=== PATIENT | female | born 1940 | race Caucasian/White ===

== ENCOUNTER → 2017-07-18 | Outpatient (CLI) | payer MEDICARE, BC ==
[~2017-07-18] MED LIST: ACT PO; ALB18R INH; ALBU8.5H IH; AMLO-96 PO; APIX5TAB PO; ASPI-1471 PO; ATOR-1 PO; ATOR40TA69 PO; AZIT-1 PO; BENZ100C4 PO; BENZ200C15 PO; BUPR-156 PO; CHOL100061 PO; CLIMARA PATCH; CODE118S5 PO; CYAN10006 IM; CYCL7.5T21 PO; DILT180C4 PO; DILT180T PO; DILT240C4 PO; DILT360C PO; DOXY-179 PO; ENOX100D5 SQ; ENOX40DI8 SQ; ENOX80DI8 SQ; ESTR0.5T16 PO; FLU IM; FLU45SYR17 IM; FLUT1DIS28 IH; FURO-45 PO; GABA-549 PO; GUAI120L3 PO; HYZAAR; IPRA3AMP21 IH; IPRA4AER IH; KET10 PO; LEV500 PO; LEVO-85 PO; LOSA-37 PO; LOSA-54 PO; LOSA-57 PO; MELO-205 PO; METF-410 PO; METO-253 PO; METO50TA19 PO; MONT10TA PO; MONT10TA4 PO; ORLI120C21 PO; OXYGENHOME INH; PER PO; PRED20TA6 PO; RANI-318 PO; SPIR25TA78 PO; TRAM-420 PO; VAR05PT PO; WARF10TA34 PO; WARF1TAB15 PO; WARF4TAB54 PO; WARF5TAB23 PO; ZOL5 PO
--- NOTE | 2017-07-18 16:51 | RADIOLOGY IMAGING REPORT ---
FACILITY: [facility] - [place] PATIENT NAME: Kaylie Chan : 1940 MR: [id number] V: [id number] EXAM DATE: ORDERING PHYSICIAN: ANISH HOYOS TECHNOLOGIST: [facility] Patient: Kaylie Chan : 1940 Visit/Account:[id number] Date of Sevice: 07/18/2017 Exam type: CHEST PA AND LAT History: Cough, fever, chills Comparison: 03/31/2016. Findings: There is minimal consolidation at the right lung base and a subtle infiltrate is not excluded. Calcif ied granuloma right midlung is unchanged. No pleural effusion or pneumothorax. Diaphragms are flatten ed. Heart size is enlarged. The osseous structures demonstrate osteopenia. IMPRESSION: 1. Mild consolidation at right lung base could represent a subtle infiltrate. 2. Pulmonary hyperinflation. 3. Stable benign calcified granuloma right midlung. Report Dictated By: Zafar Lugo MD at 07/18/2017 4:46 PM Report E-Signed By: Zafar Lugo MD at 07/18/2017 4:48 PM WSN:[id number]
== END ==
LOC: RAD 16:26
PROVIDERS: ATTEND Emergency Medicine
DX: J84.10 Pulmonary fibrosis, unspecified (principal); R91.8 Other nonspecific abnormal finding of lung field
CPT/HCPCS: 71046

== ENCOUNTER → 2017-07-29 | Outpatient (CLI) | payer MEDICARE, BC ==
[~2017-07-29] MED LIST changes: +METH4TAB66 PO; +POTA-28 PO
[2017-07-29 14:14] LABS: PLATELET COUNT, AUTOMATED 360 K/uL (150-450)
--- NOTE | 2017-07-29 14:33 | RADIOLOGY IMAGING REPORT ---
FAC[place] [facility] [place] PATIENT NAME: Kaylie Chan : 1940 MR: [id number] V: [id number] EXAM DATE: ORDERING PHYSICIAN: ANISH HOYOS TECHNOLOGIST: Location: [facility] - [place] Patient: Kaylie Chan : 1940 Visit/Account:[id number] Date of Sevice: 07/29/2017 2 VIEWS CHEST INDICATION: Pneumonia. COMPARISON: 07/18/2017. FINDINGS: Cardiac silhouette remains mildly enlarged but unchanged. Mediastinal silhouette and pulmonary vessel s within normal limits. There is improved aeration to the right lower lobe however there are still some mild residual infiltr ate or postinflammatory changes present. The remaining lung miller are clear. There is no pneumothorax or pleural effusion. Stable calcified granuloma in the right lung. No new nodules. Upper abdomen is unremarkable. No acute bony abnormality. IMPRESSION: 1. Improved aeration to the right lower lobe with mild residual infiltrate/post inflammatory change r emaining. I called report to ANISH HOYOS at 07/29/2017 2:28 PM. Report Dictated By: Zafar Brown at 07/29/2017 2:25 PM Report E-Signed By: Zafar Brown at 07/29/2017 2:28 PM WSN:[id number]
== END ==
LOC: RAD 13:40
PROVIDERS: ATTEND Emergency Medicine
DX: I51.7 Cardiomegaly (principal); R91.8 Other nonspecific abnormal finding of lung field; I10 Essential (primary) hypertension; R05 Cough; J44.9 Chronic obstructive pulmonary disease, unspecified; R06.00 Dyspnea, unspecified
CPT/HCPCS: 36415; 71046; 82040; 82247; 82310; 82374; 82435; 82565; 82947; 83880; 84075; 84132; 84155; 84295; 84450; 84460; 84520; 85025; 85379; 86140

== ENCOUNTER → 2017-08-12 | Outpatient (CLI) | payer MEDICARE, BC | LOC: LAB 10:33 | PROVIDERS: ATTEND Emergency Medicine | DX: J18.9 Pneumonia, unspecified organism (principal) | CPT/HCPCS: 36415; 82310; 82374; 82435; 82565; 82947; 84132; 84295; 84520; 86140 ==

== ENCOUNTER 2017-10-04 10:30 | Outpatient (RCR) | payer MEDICARE, BC ==
--- NOTE | 2017-09-13 11:49 | PT INITIAL EVALUATION ---
MEDICAL DIAGNOSIS: R) perkins ulcer TREATMENT DIAGNOSIS: R) medial perkins ulcer d/t trauma DATE OF ONSET: 08/27/17 SUBJECTIVE: Pt reports that she cut her R) leg on a stool approx. 2 weeks ago. She has been treating the area with antibiotic cream with daily dressing changes. She reports increased pain and swelling of the area. She was referred for PT wound care by her PCP. REHAB PROBLEM LIST: Open wound, increased swelling of R) LE PREVIOUS MEDICAL HISTORY: Retinal dystrophy, CAD (stent placed in 2008), PVD ( stent in L) iliac 2008), Angioplasty, HLD, COPD, Afib (see EMR for details) OBJECTIVE: Wound Measurement: 6 cm L x 6.4 cm W x0.2 cm D Girth Measurements: R) LE -superior to malleoli: 24 cm -mid-calf: 37.5 cm L) LE -superior to malleoli: 22 cm -mid-calf: 32.5 cm ASSESSMENT: Pt presents with larger ulcer on the R) medial perkins. Adhered slough covers 90% of the wound, with portions of detached epithelium present as well. PT completed conservative, selective debridement of non-viable tissue and slough with tweezers and scissors to the depth of the subcutaneous tissue. Debridement limited by pt's discomfort, therefore adhered slough remained. PT cleansed the wound with sterile saline and gauze and then placed calcium alginate with silver across the wound base, followed by a silicone bordered dressing to assist with autolytic debridement. R) LE demonstrates increased edema and girth measurements as compared to the L) LE, with possible signs of venous insufficiency affecting wound healing. The patient will benefit from skilled PT wound care to include sharps debridement as well as advanced wound care product selection and application to facilitate wound healing. Short Term Goals 1: Pt to maintain clean, dry and intact dressing between wound care visits. 2: Wound to demonstrate 100% granulation tissue with no s/s of infection. 3: Wound to gradually epithelialize from the edges inward and demonstrate full closure. 4: Pt to demonstrate importance of LE elevation to assist with edema management. Patient's Goals Wound Healing PLAN: Patient to be seen for skilled PT wound care to include sharps debridement as well as advanced wound care product selection and application to facilitate wound healing 1-2x/week for up to 90 days. Thank you for this referral. If you have any questions, comments, or concerns about this report or plan, please contact me at . Pauline Patel PT, DPT [facility]
[~2017-10-04 10:30] MED LIST changes: -METF-410 PO; +METF-411 PO; +WARF10TA10 PO; -WARF10TA34 PO; +WARF4TAB15 PO; -WARF4TAB54 PO
--- NOTE | 2017-10-04 10:54 | PT PLAN OF CARE ---
Physician: Dr. Morrison Patient is being seen: Kaylie Chan Therapist: Pauline Patel, PT, DPT Medical Diagnosis: R) perkins ulcer Treatment Diagnosis: R) medial perkins ulcer d/t trauma Date of Onset: 08/27/17 Date of Initial Evaluation: 09/12/17 Date patient was last seen: 10/04/17 Number of treatments: 5 Number of cancellations/No shows: 0 INTERVENTIONS: The patient was seen for skilled PT wound care including conservative sharps debridement as well as advanced wound care product selection and application in order to facilitate wound healing. Short Term Goals *(all met)* 1: Pt to maintain clean, dry and intact dressing between wound care visits. 2: Wound to demonstrate 100% granulation tissue with no s/s of infection. 3: Wound to gradually epithelialize from the edges inward and demonstrate full closure. 4: Pt to demonstrate importance of LE elevation to assist with edema management. PATIENT'S GOAL: Wound healing Status of Patient's Goals: met Patient Compliance: Excellent Prognosis: Good Reasons for continuing therapy: None at this time, wound demonstrates 100% closure with reduction of LE edema. No further need for skilled PT wound care. Thank you for this referral. If you have any questions, comments, or concerns about this report or plan, please contact me at . Pauline Patel, PT, DPT [facility]
== END 2017-10-04 11:28 | disposition home or self-care (01) ==
LOC: PT 10:30
PROVIDERS: ATTEND Emergency Medicine
DX: L97.911 Non-pressure chronic ulcer of unspecified part of right lower leg limited to breakdown of skin (principal); H35.50 Unspecified hereditary retinal dystrophy; I25.10 Atherosclerotic heart disease of native coronary artery without angina pectoris; Z98.61 Coronary angioplasty status; E78.5 Hyperlipidemia, unspecified; J44.9 Chronic obstructive pulmonary disease, unspecified; I48.91 Unspecified atrial fibrillation
CPT/HCPCS: 97161

== ENCOUNTER 2017-10-18 10:58 | Emergency (ER) | payer MEDICARE, BC ==
--- NOTE | 2017-10-18 11:01 | ER Report ---
History and Physical Time Seen By MD: 11:01 HPI/ROS CHIEF COMPLAINT: Back pain HISTORY OF PRESENT ILLNESS: This is a 77-year-old female who presents to the emergency department with her for severe back pain. Patient states that last Tuesday she had a sudden onset of severe back pain mid thoracic region primarily on the left side. Patient then rushed home but is a receded to home it did go away then today the back pain return suddenly around 0930 no injury. The pain does radiate from the mid thoracic region to the left axilla area. Patient does state that she has chills and aches, intermittent diaphoresis that seems to coinside with the pain. Patient was also recently released from the hospital for pneumonia and she states the pain was very similar. Patient denies headaches, rashes, visual changes, dysuria. The pain does cause some intermittent shortness of breath. but no chest pain. REVIEW OF SYSTEMS: Constitutional: As above Eyes: No discharge. ENT: No sore throat. Cardiovascular: No chest pain, no palpitations. Respiratory: As above. Gastrointestinal: No abdominal pain, no vomiting. Genitourinary: No hematuria. Musculoskeletal: As above. Skin: No rashes. Neurological: No headache. Allergies: Coded Allergies: Penicillins (Verified Allergy, Severe, ANAPHYLAXIS, 10/18/17) morphine (Verified Allergy, Intermediate, HIVES, 10/18/17) levofloxacin (Unverified Adverse Reaction, Intermediate, widespread joint pain. 01/27. , 10/18/17) Mtlslby-Dht-Gvv Reductase Inhibitor (Unverified Adverse Reaction, Mild, stomach pain, 10/18/17) Home Meds Active Scripts Metaxalone (SKELAXIN) 800 Mg Tablet, 800 MG PO TID Y for prn, #15 TAB 0 Refills Prov:PRECIOUS LUO PAINTING MANAGER-BC 10/18/17 Apixaban (ELIQUIS) 5 Mg Tablet, 1 TAB PO BID, #180 TAB 3 Refills Prov:ANISH MORRISON MD 08/09/17 Promethazine HCl/Codeine (Promethazine-Codeine Syrup) 6.25 Mg-10 Mg/5 Ml Syrup, 5 ML PO Q4-6H, #200 ML Prov:ANISH MORRISON MD 07/29/17 Potassium Chloride (POTASSIUM CHLORIDE) 10 Meq Tablet.er, 20 MEQ PO QDAY, #14 TAB Prov:ANISH MORRISON MD 07/29/17 Methylprednisolone (METHYLPREDNISOLONE) 4 Mg Tab.ds.pk, 4 MG PO DIRECTED, #1 PACK Prov:ANISH MORRISON MD 07/29/17 Ipratropium/Albuterol Sulfate (IPRAT-ALBUT 0.5-3(2.5) MG/3 ML) 3 Ml Ampul.neb, 3 ML IH Q4-6H Y for WHEEZING, #40 VIAL 0 Refills Prov:SNEHAL YEH DNP, PAINTING MANAGER-BC 07/25/17 Albuterol Sulfate 90 Mcg/Act (PROAIR HFA 90 MCG/ACT) 8.5 Gm Hfa.aer.ad, 2 PUFF IH Q4-6H, #1 INHALER Prov:ANISH MORRISON MD 07/18/17 Tramadol Hcl (TRAMADOL HCL) 50 Mg Tablet, 2 TAB PO TID Y for pain, #180 TAB 5 Refills Prov:ANISH MORRISON MD 06/20/17 Diltiazem Hcl (DILTIAZEM 24HR CD) 240 Mg Cap.er.24h, 240 MG PO DAILY, #90 CAP.SR.24H 3 Refills Prov:ANISH MORRISON MD 01/05/17 Cyanocobalamin (Vitamin B-12) (VITAMIN B-12) 1,000 Mcg/1 Ml Drops, 1 ML IM Q30D , #1 VIAL 11 Refills Prov:ANISH MORRISON MD 12/08/16 Gabapentin (GABAPENTIN) 300 Mg Capsule, 1 CAP PO TID, #270 CAPSULE 3 Refills Prov:ANISH MORRISON MD 10/25/16 Metoprolol Succinate (METOPROLOL SUCCINATE) 50 Mg Tab.er.24h, 1 TAB PO QDAY, # 90 TAB 3 Refills Prov:ANISH MORRISON MD 10/25/16 Fluticasone/Salmeterol (ADVAIR 250-50 DISKUS) 1 Each Disk.w.dev, 1 EACH IH BID, #3 DISK 3 Refills Prov:ANISH MORRISON MD 10/25/16 Montelukast Sodium (MONTELUKAST SODIUM) 10 Mg Tablet, 1 TAB PO QDAY, #90 TAB 3 Refills Prov:ANISH MORRISON MD 10/25/16 Losartan/Hydrochlorothiazide (LOSARTAN-HCTZ 100-25 MG TAB) 1 Each Tablet, 1 EACH PO QDAY, #90 TAB 3 Refills Prov:ANISH MORRISON MD 10/25/16 Reported Medications Oxygen (OXYGEN) Inha, 3 L INH DAILY, L 01/05/17 Atorvastatin Calcium (ATORVASTATIN CALCIUM) 80 Mg Tablet, 1 TAB PO QDAY, TAB 01/05/17 Aspirin (ASPIR 81) 81 Mg Tablet.dr, 81 MG PO QDAY, TAB 03/15/14 Past Medical/Surgical History Patient has a past medical and surgical history of hypertension, ventral hernia with repair, arthritis, left foot fracture, hospitalization for pneumonia, colonoscopy, colon resection multiple abdominal surgeries, hysterectomy, left foot surgery. Reviewed Nurses Notes: Yes Hx Smoking: Yes (STILL SMOKING) Smoking Status: Former Smoker Constitutional Vital Sign - Last 24 Hours 10/18/17 10/18/17 10/18/17 10/18/17 11:01 11:06 11:07 11:28 Temp 97.9 Pulse 117 119 Resp 22 22 B/P (MAP) 147/99 (115) 147/99 (115) Pulse Ox 96 89 10/18/17 10/18/17 10/18/17 10/18/17 11:30 11:58 12:00 12:15 Pulse 97 Resp 14 B/P (MAP) 145/114 (124) 145/94 (111) 132/77 (95) Pulse Ox 91 10/18/17 10/18/17 10/18/17 10/18/17 12:28 12:30 13:15 13:30 Pulse 92 Resp 17 B/P (MAP) 126/91 (103) 141/99 (113) 125/86 (99) 10/18/17 10/18/17 10/18/17 10/18/17 13:35 13:45 14:04 14:05 Pulse 103 99 Resp 84 B/P (MAP) 114/53 (73) 135/95 (108) Pulse Ox 94 83 Physical Exam General Appearance: The patient is alert, has no immediate need for airway protection and no signs of toxicity, tearful. Eyes: Pupils equal and round no pallor or injection. Blind in right eye. ENT, Mouth: Mucous membranes are moist. Respiratory: There are no retractions, lungs are clear to auscultation. Cardiovascular: Regular rate and rhythm, no murmurs, clicks or rubs. Gastrointestinal: Abdomen is soft and non tender, no masses, bowel sounds normal. Neurological: Alert and oriented 4. Moving all extremities. Following all commands. No focal neuro deficits. Skin: Warm and dry, no rashes. Musculoskeletal: Neck is supple non tender. Reproducible left-sided mid thoracic back pain which does seem to radiate to the left mid axilla area, in a very linear fashion. No crepitus, deformities or bruising. Extremities are nontender, nonswollen and have full range of motion. DIFFERENTIAL DIAGNOSIS: After history and physical exam differential diagnosis was considered for back pain including but not limited to muscular pain, herniated disc, spine fracture, intra-abdominal causes and urinary tract infection.chest pain including but not limited to myocardial ischemia, pericarditis pulmonary embolus, chest wall pain, pleural inflammation and pulmonary infectious causes. Medical Decision Making Data Points Result Diagram: 10/18/17 1122 10/18/17 1122 Laboratory Hematology Test 10/18/17 11:22 10/18/17 12:39 Red Blood Count 5.06 M/uL (4.17-5.56) Mean Corpuscular Volume 93.4 fL (80.0-96.0) Mean Corpuscular Hemoglobin 32.5 pg (26.0-33.0) Mean Corpuscular Hemoglobin Concent 34.8 g/dL (32.0-36.0) Red Cell Distribution Width 13.6 % (11.5-14.5) Mean Platelet Volume 7.3 fL (7.2-11.1) Neutrophils (%) (Auto) 74.9 % (39.4-72.5) Lymphocytes (%) (Auto) 17.2 % (17.6-49.6) Monocytes (%) (Auto) 5.7 % (4.1-12.4) Eosinophils (%) (Auto) 1.0 % (0.4-6.7) Basophils (%) (Auto) 1.2 % (0.3-1.4) Nucleated RBC Relative Count (auto) 0.0 /100WBC Neutrophils # (Auto) 5.2 K/uL (2.0-7.4) Lymphocytes # (Auto) 1.2 K/uL (1.3-3.6) Monocytes # (Auto) 0.4 K/uL (0.3-1.0) Eosinophils # (Auto) 0.1 K/uL (0.0-0.5) Basophils # (Auto) 0.1 K/uL (0.0-0.1) Nucleated RBC Absolute Count (auto) 0.00 K/uL Sodium Level 138 mmol/L (137-145) Potassium Level 3.9 mmol/L (3.5-5.0) Chloride Level 101 mmol/L (98-107) Carbon Dioxide Level 25 mmol/L (22-31) Blood Urea Nitrogen 13 mg/dl (7-18) Creatinine 0.70 mg/dl (0.52-1.04) Glomerular Filtration Rate Calc > 60.0 Random Glucose 115 mg/dl (75-110) Calcium Level 9.7 mg/dl (8.4-10.2) Total Bilirubin 1.1 mg/dl (0.2-1.3) Aspartate Amino Transf (AST/SGOT) 32 U/L (0-35) Alanine Aminotransferase (ALT/SGPT) 39 U/L (0-56) Alkaline Phosphatase 103 U/L (0-126) Troponin I < 0.012 ng/ml Total Protein 7.6 gm/dl (6.3-8.2) Albumin 4.3 g/dl (3.5-5.0) Lipase 95 U/L (23-300) Urine Color Yellow Urine Clarity Clear Urine pH 7.0 pH (4.8-9.5) Urine Specific [place] 1.011 Urine Protein Negative mg/dL (NEGATIVE) Urine Glucose (UA) Negative mg/dL (NEGATIVE) Urine Ketones Negative mg/dL (NEGATIVE) Urine Blood Negative (NEGATIVE) Urine Nitrite Negative (NEGATIVE) Urine Bilirubin Negative (NEGATIVE) Urine Urobilinogen Negative mg/dL (0.2-1.9) Urine Leukocyte Esterase Negative (NEGATIVE) Urine RBC 1 /HPF (0-2/HPF) Urine WBC <1 /HPF (0-5/HPF) Urine Squamous Epithelial Cells Many /LPF (</=FEW) Urine Bacteria Few /HPF (NONE-FEW) Urine Mucus Few /HPF (NONE-FEW) Chemistry Test 10/18/17 11:22 10/18/17 12:39 White Blood Count 7.0 k/uL (4.5-11.0) Red Blood Count 5.06 M/uL (4.17-5.56) Hemoglobin 16.5 g/dL (12.0-16.0) Hematocrit 47.2 % (34.0-47.0) Mean Corpuscular Volume 93.4 fL (80.0-96.0) Mean Corpuscular Hemoglobin 32.5 pg (26.0-33.0) Mean Corpuscular Hemoglobin Concent 34.8 g/dL (32.0-36.0) Red Cell Distribution Width 13.6 % (11.5-14.5) Platelet Count 287 K/uL (150-450) Mean Platelet Volume 7.3 fL (7.2-11.1) Neutrophils (%) (Auto) 74.9 % (39.4-72.5) Lymphocytes (%) (Auto) 17.2 % (17.6-49.6) Monocytes (%) (Auto) 5.7 % (4.1-12.4) Eosinophils (%) (Auto) 1.0 % (0.4-6.7) Basophils (%) (Auto) 1.2 % (0.3-1.4) Nucleated RBC Relative Count (auto) 0.0 /100WBC Neutrophils # (Auto) 5.2 K/uL (2.0-7.4) Lymphocytes # (Auto) 1.2 K/uL (1.3-3.6) Monocytes # (Auto) 0.4 K/uL (0.3-1.0) Eosinophils # (Auto) 0.1 K/uL (0.0-0.5) Basophils # (Auto) 0.1 K/uL (0.0-0.1) Nucleated RBC Absolute Count (auto) 0.00 K/uL Glomerular Filtration Rate Calc > 60.0 Calcium Level 9.7 mg/dl (8.4-10.2) Total Bilirubin 1.1 mg/dl (0.2-1.3) Aspartate Amino Transf (AST/SGOT) 32 U/L (0-35) Alanine Aminotransferase (ALT/SGPT) 39 U/L (0-56) Alkaline Phosphatase 103 U/L (0-126) Troponin I < 0.012 ng/ml Total Protein 7.6 gm/dl (6.3-8.2) Albumin 4.3 g/dl (3.5-5.0) Lipase 95 U/L (23-300) Urine Color Yellow Urine Clarity Clear Urine pH 7.0 pH (4.8-9.5) Urine Specific [place] 1.011 Urine Protein Negative mg/dL (NEGATIVE) Urine Glucose (UA) Negative mg/dL (NEGATIVE) Urine Ketones Negative mg/dL (NEGATIVE) Urine Blood Negative (NEGATIVE) Urine Nitrite Negative (NEGATIVE) Urine Bilirubin Negative (NEGATIVE) Urine Urobilinogen Negative mg/dL (0.2-1.9) Urine Leukocyte Esterase Negative (NEGATIVE) Urine RBC 1 /HPF (0-2/HPF) Urine WBC <1 /HPF (0-5/HPF) Urine Squamous Epithelial Cells Many /LPF (</=FEW) Urine Bacteria Few /HPF (NONE-FEW) Urine Mucus Few /HPF (NONE-FEW) Urinalysis Test 10/18/17 12:39 Urine Color Yellow Urine Clarity Clear Urine pH 7.0 pH (4.8-9.5) Urine Specific [place] 1.011 Urine Protein Negative mg/dL (NEGATIVE) Urine Glucose (UA) Negative mg/dL (NEGATIVE) Urine Ketones Negative mg/dL (NEGATIVE) Urine Blood Negative (NEGATIVE) Urine Nitrite Negative (NEGATIVE) Urine Bilirubin Negative (NEGATIVE) Urine Urobilinogen Negative mg/dL (0.2-1.9) Urine Leukocyte Esterase Negative (NEGATIVE) Urine RBC 1 /HPF (0-2/HPF) Urine WBC <1 /HPF (0-5/HPF) Urine Squamous Epithelial Cells Many /LPF (</=FEW) Urine Bacteria Few /HPF (NONE-FEW) Urine Mucus Few /HPF (NONE-FEW) EKG/Imaging EKG Interpretation 12 lead EKG: Time of EKG 1335 Rhythm: Atrial fibrillation, 94 bpm. [place]: normal QRS: normal ST segments: No ST elevation or depression identified. Probable incomplete right bundle branch block. The 02/27/2015 EKG showing sinus bradycardia, today his A. fib patient states she does have a history of atrial fibrillation. Imaging Location: [facility] Patient: Kaylie Chan : 1940 Visit/Account:[id number] Date of Sevice: 10/18/2017 Examination: CHEST PA AND LAT Comparison: 07/29/2017 and earlier. History: severe back pain, s/p pna Findings: Cardiac and hilar contour size is prominent but unchanged. Right lower lobe calcified granuloma is unchanged since at least 2008. No new or enlarging consolidation or nodule. No pneumothorax, edema, or effusion. No acute osseous abnormality. IMPRESSION: Chronic findings with no evidence of acute cardiopulmonary disease. Report Dictated By: Olu Roman MD at 10/18/2017 12:05 PM Report E-Signed By: Olu Roman MD at 10/18/2017 12:09 PM WSN:[id number] Location: [facility] Patient: Kaylie Chan : 1940 Visit/Account:[id number] Date of Sevice: 10/18/2017 THORACIC SPINE 3 VIEWS HISTORY: Severe back pain status post pneumonia. COMPARISON: X-ray examination chest October 18, 2017. The images from the CT examination of the chest from 2016 are not viewable at this time FINDINGS: Mild levoscoliotic curvature thoracic spine, some of which may be positional. Calcified granuloma seen over the right lung and right hilum. Bony alignment is anatomic. No fracture or destructive osseous process involving the thoracic spine. Due to summation of densities of the shoulders, the T1 vertebra is mildly obscured. No fracture. Mild degenerative changes. IMPRESSION: Mild multilevel spondylosis thoracic spine without acute osseous finding. Report Dictated By: Lazaro Gaffney MD at 10/18/2017 11:59 AM Report E-Signed By: Lazaro Gaffney MD at 10/18/2017 12:00 PM WSN:[id number] ED Course/Re-evaluation Clinical Indication for ER IV: Hydration, IV Access ED Course The patient was admitted to a room. A history physical were obtained. Differential diagnoses were considered. An IV was started. A CBC, CMP were obtained. A troponin and UA were obtained. EKG showing atrial fibrillation, patient does have a history of A. fib. CBC unremarkable, chemistry unremarkable negative troponin negative urine. Negative chest x-ray. I did review these results with the patient and her as noted below did tell him I don't phonation as to why she is having this pain therefore we decided to proceed with a CT of the chest which was negative for pulmonary embolus or dissection. Patient was given a 500 mL normal saline bolus, 50 g IV fentanyl 2, 4 mg IV Zofran. Patient had significant improvement in pain and was able to ambulate without discomfort. I did tell patient that I feel this is more muscular and did send her home with prescription for Skelaxin as well as as a physical therapy referral. Patient was instructed to follow-up with her primary care provider in the next 2-7 days for reevaluation. The patient had no other questions or concerns at this time and was discharged home. Patient was relieved with the negative workup. 10/18/2017 12:34:41 pm lab studies and chest x-ray unremarkable. I did review these results with the patient and her . I did tell him I don't have a definitive answer as to why she is having the left-sided back pain therefore elect to proceed with a CT of the chest. The patient and are in agreement with this. Decision to Disposition Date: Oct 18, 2017 Decision to Disposition Time: 14:22 Depart Departure Latest Vital Signs Vital Signs Date Time Temp Pulse Resp B/P (MAP) Pulse Ox O2 Delivery O2 Flow Rate FiO2 10/18/17 14:05 99 83 10/18/17 14:04 135/95 (108) 10/18/17 13:35 84 10/18/17 11:01 97.9 Impression: Primary Impression: Acute left-sided thoracic back pain Condition: Improved Disposition: HOME OR SELF-CARE Referrals: ANISH MORRISON MD (PCP) New Scripts Metaxalone (SKELAXIN) 800 Mg Tablet 800 MG PO TID Y for prn, #15 TAB 0 Refills Prov: PRECIOUS LUO 10/18/17 Patient Instructions: Acute Low Back Pain (ED) Additional Instructions: Continue to drink plenty of fluids. Get plenty of rest. Continue taking your regular medications as prescribed. Take the Skelaxin for additional pain relief. Consider physical therapy. Follow up with Dr. Morrison in 2-7 days for reevaluation. There is no sign of pneumonia, pulmonary emboli or thoracic dissection. Return to the ED for any other concerns or worsening symptoms. PRECIOUS LUO Oct 18, 2017 11:01
[2017-10-18] MEDS ORDERED: ONDANSETRON 4 MG/2 ML VIAL IVP ONE (11:05)
[2017-10-18] MEDS ORDERED: fentaNYL CITR 100 MCG/2 ML AMP IVP ONE ×2 (11:05→11:55)
[2017-10-18 11:38] LABS: PLATELET COUNT, AUTOMATED 287 K/uL (150-450)
--- NOTE | 2017-10-18 12:03 | RADIOLOGY IMAGING REPORT ---
FACILITY: [facility] - [place], [place] PATIENT NAME: Kaylie Chan : 1940 MR: [id number] V: [id number] EXAM DATE: ORDERING PHYSICIAN: PRECIOUS LUO TECHNOLOGIST: Location: [facility] [place] Patient: Kaylie Chan : 1940 Visit/Account:[id number] Date of Sevice: 10/18/2017 THORACIC SPINE 3 VIEWS HISTORY: Severe back pain status post pneumonia. COMPARISON: X-ray examination chest October 18, 2017. The images from the CT examination of the chest f rom 2015 are not viewable at this time FINDINGS: Mild levoscoliotic curvature thoracic spine, some of which may be positional. Calcified granuloma se en over the right lung and right hilum. Bony alignment is anatomic. No fracture or destructive osseous process involving the thoracic spine. Due to summation of densities of the shoulders, the T1 vertebra is mildly obscured. No fracture. Mild degenerative changes. IMPRESSION: Mild multilevel spondylosis thoracic spine without acute osseous finding. Report Dictated By: Lazaro Gaffney MD at 10/18/2017 11:59 AM Report E-Signed By: Lazaro Gaffney MD at 10/18/2017 12:00 PM WSN:[email or web address]
--- NOTE | 2017-10-18 12:13 | RADIOLOGY IMAGING REPORT ---
FACILITY: [facility] [place] PATIENT NAME: Kaylie Chan : 1940 MR: [id number] V: [id number] EXAM DATE: ORDERING PHYSICIAN: PRECIOUS LUO TECHNOLOGIST: Location: [facility] [place] Patient: Kaylie Chan : 1940 Visit/Account:[id number] Date of Sevice: 10/18/2017 Examination: CHEST PA AND LAT Comparison: 07/29/2017 and earlier. History: severe back pain, s/p pna Findings: Cardiac and hilar contour size is prominent but unchanged. Right lower lobe calcified granu torsten is unchanged since at least 2008. No new or enlarging consolidation or nodule. No pneumothorax, edema, or effusion. No acute osseous abnormality. IMPRESSION: Chronic findings with no evidence of acute cardiopulmonary disease. Report Dictated By: Olu Roman MD at 10/18/2017 12:05 PM Report E-Signed By: Olu Roman MD at 10/18/2017 12:09 PM WSN:[id number]
[2017-10-18] MEDS ORDERED: NS(*) 0.9% 500 ML BAG 500 ML IV ONE (12:35)
[2017-10-18] MEDS ORDERED: IOPAMIDOL 76% 75 ML INFUS BTL 0 ML ONE (12:53)
[2017-10-18] MEDS ORDERED: NS 0.9% 25 ML BAG 50 ML ONE (12:55)
[2017-10-18] MEDS ORDERED: IOPAMIDOL 76% 75 ML INFUS BTL 75 ML ONE (13:03)
--- NOTE | 2017-10-18 13:42 | EKG ---
FACILITY: [facility] - [place] PATIENT NAME: RUPERTO NORMAN : [id number] MR: [id number] V: [id number] EXAM DATE: ORDERING PHYSICIAN: PRECIOUS LUO TECHNOLOGIST: YOSELYN Test Reason : PAIN Blood Pressure : / mmHG Vent. Rate : 094 BPM Atrial Rate : 300 BPM P-R Int : 000 ms QRS Dur : 092 ms QT Int : 374 ms P-R-T Axes : 000 008 004 degrees QTc Int : 467 ms Atrial fibrillation Nonspecific ST abnormality , probably digitalis effect Abnormal ECG When compared with ECG of 27-FEB-2015 10:55, Atrial fibrillation has replaced Sinus rhythm Vent. rate has increased BY 38 BPM Nonspecific T wave abnormality now evident in Inferior leads T wave amplitude has decreased in Anterolateral leads Confirmed by DAMION RAJPUT ([id number]) on 10/19/2017 6:29:37 AM Referred By: NELSON Confirmed By:DAMION RAJPUT
--- NOTE | 2017-10-18 13:53 | RADIOLOGY IMAGING REPORT ---
FACILITY: [facility] - [place] PATIENT NAME: Kaylie Chan : 1940 MR: [id number] V: [id number] EXAM DATE: ORDERING PHYSICIAN: PRECIOUS LUO TECHNOLOGIST: Location: [facility] [place] Patient: Kaylie Chan : 1940 Visit/Account:[id number] Date of Sevice: 10/18/2017 CTA CHEST WW/O CNTR (PULM ANG) HISTORY: sudden onset of left sided back pain, sob, eval PE? ADDITIONAL HISTORY: None. TECHNIQUE: CTA chest with intravenous contrast. Axial imaging acquired following administration of IV contrast timed for maximum opacification of the pulmonary arterial vasculature. Slab 3-D MIP antonietta nstructed images were also created for further evaluation and interpretation. Reconstruction of the [facility] data set includes multiplanar 2-D in the sagittal and coronal planes and 3-D reconstructed sandy nal slab MIP series. 3-D images were created by the technologist. Dose Lowering Technique One of the following dose optimization techniques was utilized in the performance of this exam: Autom ated exposure control; adjustment of the mA and/or kV according to the patient's size; or use of an i terative reconstruction technique. Specific details can be referenced in the facility's radiology C T exam operational policy. CONTRAST: 75 mL Isovue-370 COMPARISON: December 11, 2015 FINDINGS: Lungs/pleura: There are mild dependent changes seen in the lower lung miller. 1 cm calcified nodule in the posterolateral right lower lobe has remained stable.. Previously noted small spiculations in the right middle lobe and right lower lobe are no longer seen. There is no evidence of pleural effu sions. Heart/vessels: The heart is mildly enlarged. There is no evidence of pulmonary emboli demonstrated. Mediastinum/lymph nodes: There are multiple mildly prominent mediastinal lymph nodes many of which a re calcified that appears similar to the prior study Visualized upper abdomen: Calcified granulomas noted in the spleen. Bilateral adrenal nodules appea r similar to the prior study, right side more affected than the left Bones/soft tissues: Incompletely imaged is the right-sided thyroid nodule. This has apparently been previously biopsied although the biopsy results are not currently available to us time Additional findings: None IMPRESSION: No evidence of pulmonary emboli Evidence of a prior granulomatous process There are mild dependent changes in the lower lung miller. Mild cardiomegaly Adrenal nodules appear similar to the prior study Right-sided thyroid nodule is also incompletely seen although has apparently been previously biopsied Report Dictated By: Maria Teresa Valdez MD at 10/18/2017 1:35 PM Report E-Signed By: Maria Teresa Valdez MD at 10/18/2017 1:50 PM WSN:[email or web address]
[2017-10-18 14:04] VITALS: BP 135/95
[2017-10-18] MEDS ORDERED: META800T18 PO (14:13)
== END 2017-10-18 14:44 | disposition home or self-care (01) ==
LOC: ER 11:08
DX: M54.6 Pain in thoracic spine (principal); I48.91 Unspecified atrial fibrillation; R94.31 Abnormal electrocardiogram [ECG] [EKG]
CPT/HCPCS: 71046; 71275; 72072; 81001; 83690; 84484; 85025; 93005; 96361; 96374; 96375; 96376; 99284; J2405; J3010; J7040; Q9967; 82040; 82247; 82310; 82374; 82435; 82565; 82947; 84075; 84132; 84155; 84295; 84450; 84460; 84520

== ENCOUNTER → 2018-03-15 | Outpatient (CLI) | payer MEDICARE, BC ==
[~2018-03-15] MED LIST changes: +AMLO-111 PO; -AMLO-96 PO; +CYA1000 PO; +IPRA3AMP10 IH; -IPRA3AMP21 IH; +META800T18 PO; -METF-411 PO; +METF-450 PO; -SPIR25TA78 PO; +SPIR25TA80 PO; +SULF-198 PO
== END ==
LOC: LAB 11:39
PROVIDERS: ATTEND Emergency Medicine
DX: N39.0 Urinary tract infection, site not specified (principal); R32 Unspecified urinary incontinence; B96.1 Klebsiella pneumoniae [K. pneumoniae] as the cause of diseases classified elsewhere
CPT/HCPCS: 81001; 87077; 87088; 87186

== ENCOUNTER → 2018-03-29 | Outpatient (CLI) | payer MEDICARE, BC ==
--- NOTE | 2018-03-29 16:02 | RADIOLOGY IMAGING REPORT ---
FACILITY: [facility] [place] PATIENT NAME: Kaylie Chan : 1940 MR: [id number] V: [id number] EXAM DATE: ORDERING PHYSICIAN: ANISH HOYOS TECHNOLOGIST: Location: [facility] [place] Patient: Kaylie Chan : 1940 Visit/Account:[id number] Date of Sevice: 03/29/2018 2 VIEWS CHEST INDICATION: Cough, 5-6 days COMPARISON: X-ray examination chest October 18, 2017, CT examination chest same date FINDINGS: Cardiac silhouette is mildly enlarged, stable. Stable sequela of previous granulomatous disease. No evidence of new infiltrate, consolidation, effusion or pneumothorax. No acute bony finding. Overal l, unchanged exam. IMPRESSION: 1. No acute cardiopulmonary process. Report Dictated By: Lazaro Gaffney MD at 03/29/2018 3:55 PM Report E-Signed By: Lazaro Gaffney MD at 03/29/2018 3:57 PM WSN:[email or web address]
== END ==
LOC: RAD 15:22
PROVIDERS: ATTEND Emergency Medicine
DX: R05 Cough (principal)
CPT/HCPCS: 71046

== ENCOUNTER → 2018-04-12 | Outpatient (CLI) | payer MEDICARE, BC ==
[~2018-04-12] MED LIST changes: +CIPR-214 PO; +MIRA50TA PO
== END ==
LOC: LAB 11:20
PROVIDERS: ATTEND Urology
DX: Z12.6 Encounter for screening for malignant neoplasm of bladder (principal); Z87.891 Personal history of nicotine dependence
CPT/HCPCS: 88108

== ENCOUNTER → 2018-07-06 | Outpatient (CLI) | payer MEDICARE, BC ==
[~2018-07-06] MED LIST changes: -AMLO-111 PO; +AMLO-125 PO; +SOLI10TA8 PO
[2018-07-06 16:13] LABS: PLATELET COUNT, AUTOMATED 270 K/uL (150-450)
== END ==
LOC: LAB 15:45
PROVIDERS: ATTEND Urology
DX: Z01.818 Encounter for other preprocedural examination (principal)
CPT/HCPCS: 36415; 82040; 82247; 82310; 82374; 82435; 82565; 82947; 84075; 84132; 84155; 84295; 84450; 84460; 84520; 85025; 85730

== ENCOUNTER 2018-07-24 02:10 | Day surgery (SDC) | payer MEDICARE, BC ==
[~2018-07-24] VITALS: Ht 167.6 cm; Wt 83.9 kg
[2018-07-24] VITALS (8 sets, daily range): BP systolic 100–148; BP diastolic 54–98
[~2018-07-24 02:10] MED LIST changes: +NORMOSOL R SOLN(*) 1000 ML BAG 1,000 ML IV PRN
[2018-07-24] MEDS ORDERED: NORMOSOL R SOLN(*) 1000 ML BAG 1,000 ML IV PRN (06:30)
[2018-07-24] MEDS ORDERED: FAMOTIDINE 20 MG TAB PO ONE (06:30)
[2018-07-24] MEDS ORDERED: MIDAZOLAM 2 MG/2 ML VIAL IVP PRN (06:30)
[2018-07-24] MEDS ORDERED: LIDOCAINE/SOD BICARB 8.4% SYR ID ONE (06:30)
[2018-07-24] MEDS ORDERED: NS 0.9% IVPB ONE (06:30)
[2018-07-24] MEDS ORDERED: GENTAMICIN IVPB ONE (06:30)
[2018-07-24] MEDS ORDERED: ONDANSETRON 4 MG/2 ML VIAL ONE (06:35)
[2018-07-24] MEDS ORDERED: DEXAMETHASONE SOD 4 MG/ML VIAL ONE (06:35)
[2018-07-24] MEDS ORDERED: PROPOFOL EMUL(*) 10MG/ML 20 ML 20 ML ONE (06:35)
[2018-07-24] MEDS ORDERED: LIDOCAINE MPF 1% 5 ML VIAL ONE (06:35)
[2018-07-24] MEDS ORDERED: fentaNYL CITR 100 MCG/2 ML AMP ONE (07:34)
--- NOTE | 2018-07-24 08:41 | Urology Discharge Summary ---
Discharge Summary Reason for Hosp/Final Diag: (1) Stress bladder incontinence, female Status: Resolved Departure Weight (Pounds): 185 Condition: Improved Discharge Instructions Home Meds Active Scripts Cyanocobalamin (Vitamin B-12) (VITAMIN B-12) 1,000 Mcg Tablet, 1000 MCG PO DAILY, #90 TAB 3 Refills Prov:ANISH HOYOS MD 06/30/18 Montelukast Sodium (MONTELUKAST SODIUM) 10 Mg Tablet, 1 TAB PO QDAY, #90 TAB 3 Refills Prov:ANISH HOYOS MD 01/06/18 Tramadol Hcl (TRAMADOL HCL) 50 Mg Tablet, 2 TAB PO TID PRN for pain, #180 TAB 5 Refills Prov:ANISH HOYOS MD 01/04/18 Diltiazem Hcl (DILTIAZEM 24HR CD) 240 Mg Cap.er.24h, 240 MG PO DAILY, #90 CAP.SR.24H 3 Refills Prov:ANISH HOYOS MD 01/03/18 Atorvastatin Calcium (ATORVASTATIN CALCIUM) 40 Mg Tablet, 1 TAB PO QDAY, #90 TAB 3 Refills Prov:ANISH HOYOS MD 12/20/17 Metoprolol Succinate (METOPROLOL SUCCINATE) 50 Mg Tab.er.24h, 1 TAB PO QDAY, #90 TAB 3 Refills Prov:ANISH HOYOS MD 11/07/17 Losartan/Hydrochlorothiazide (LOSARTAN-HCTZ 100-25 MG TAB) 1 Each Tablet, 1 EACH PO QDAY, #90 TAB 3 Refills Prov:ANISH HOYOS MD 10/27/17 Metaxalone (SKELAXIN) 800 Mg Tablet, 800 MG PO TID PRN for prn, #15 TAB 0 Refills Prov:PRECIOUS LUO GAS REGULATOR REPAIRER HELPER-BC 10/18/17 Apixaban (ELIQUIS) 5 Mg Tablet, 1 TAB PO BID, #180 TAB 3 Refills Prov:ANISH HOYOS MD 08/09/17 Ipratropium/Albuterol Sulfate (IPRAT-ALBUT 0.5-3(2.5) MG/3 ML) 3 Ml Ampul.neb, 3 ML IH Q4-6H PRN for WHEEZING, #40 VIAL 0 Refills Prov:SNEHAL YEH DNP, GAS REGULATOR REPAIRER HELPER-BC 07/25/17 Albuterol Sulfate 90 Mcg/Act (PROAIR HFA 90 MCG/ACT) 8.5 Gm Hfa.aer.ad, 2 PUFF IH Q4-6H, #1 INHALER Prov:ANISH HOYOS MD 07/18/17 Gabapentin (GABAPENTIN) 300 Mg Capsule, 1 CAP PO TID, #270 CAPSULE 3 Refills Prov:ANISH HOYOS MD 10/25/16 Fluticasone/Salmeterol (ADVAIR 250-50 DISKUS) 1 Each Disk.w.dev, 1 EACH IH BID, #3 DISK 3 Refills Prov:ANISH HOYOS MD 10/25/16 Reported Medications Aspirin (ASPIR 81) 81 Mg Tablet.dr, 81 MG PO QDAY, TAB 03/15/14 Discontinued Scripts Solifenacin Succinate (VESICARE) 10 Mg Tablet, 10 MG PO DAILY for 30 Days, #30 CAP Prov:SHEMAR MIX MD 05/18/18 Venous Thromboembolism Antithrombotics Is Pt On Any Antithrombotics?: Yes SHEMAR MIX MD Jul 24, 2018 08:41
[2018-07-24] MEDS ORDERED: ALBUTEROL/IPRATROPIUM 3 ML NEB NEB ONE (11:20)
--- NOTE | 2018-07-24 11:22 | NUR ---
0915- PT BROUGHT TO CA PHASE 2 BAY 6, PT A/O X 3, DENIES PAIN OF DISCOMFORT, PT IS POLITE AND COOPERATIVE WITH CARES AND STAFF, VSS, PT ON 3LPM VIA NC, 20G IV IN LEFT HAND, NO S/S OF INFILTRATION, SBAR REPORT FROM MOON RN 0920- NAZARIO AT BEDSIDE 0935- PT TOLERATING COFFEE 0945- CONSULT WITH DR. MARTINEZ ABOUT O2, HE STATES SHE CAME IN LOW AND IF SHE CAN MAINTAIN SATS ABOVE 85% ON RA TO SEND HOME AND HAVE HER USE HER HOME O2 FOR 24HOURS 0950- PT USED PERSONAL INHALERS 0958- PT DENIES PAIN 1007- DECREASED TO 2LPM VIA NC 1015- REVIEWED D/C INSTRUCTIONS WITH PT AND 1017- DECREASED TO 1LPM VIA NC 1025- PER Irish JACKSON RN, SATS DROPPED TO 77% ON 1LPM, PLACED PT ON 2LPM VIA NC 1030- ORTHOSTATIC BP'S DONE VSS 1035- PT AMBULATORY TO RESTROOM WITH PORTABLE O2 AT 2LPM 1045- BACK FROM RESTROOM, DECREASED TO 1LPM VIA, STARTED PT ON IS, CONSULT DR. MARTINEZ ADVISED TO GET PT UP WALKING AND USING IS 1100- PT UP WALKING WITH O2 AT 2LPM, 2 LAPS DONE AROUND PREOP BAYS, PT DENIES SOB, REPORTS SHE "FEELS GREAT" 1107- BACK TO ROOM PLACED ON 1LPM VIA NC, SATS WERE AT 84% ON 1LPM VIA NC 1108- SATS BRAYAN TO 92% ON 1LPM VIA NC 1110- SPOKE WITH DR. MARTINEZ, [place] TX ORDERED 1122- RESPIRATORY AT BEDSIDE 1128- [place] COMPLETED
--- NOTE | 2018-07-24 11:29 | NUR ---
1129-PT PLACED ON RA AFTER DUONEB TX
--- NOTE | 2018-07-24 11:33 | NUR ---
1133- PT GETTING DRESSED
--- NOTE | 2018-07-24 11:38 | NUR ---
1138- PT MAINTAINING SATS ON RA, CONTACT DR. MICHELLE BLISS TO D/C, ADVISED PT TO USE HOME O2 FOR THE FIRST 24HOURS, PT VERBALIZED UNDERSTANDING. 1139- D/C IV WITH CATH INTACT, PRESSURE DRESSING APPLIED WITH GAUZE AND COBAND 1145- PT WHEELCHAIRED OUT TO VEHICLE, ACCOMPANIED BY HIPOLITO CUMMINGS AND NAZARIO
--- NOTE | 2018-07-24 13:13 | OPERATIVE REPORT 1 ---
EVENT DATE: July 24, 2018 SURGEON: Brett Hamilton MD ANESTHESIOLOGIST: Chuck Godoy MD ANESTHESIA: General. IMAGE ASSEMBLER: None. PREOPERATIVE DIAGNOSIS Stress urinary incontinence. POSTOPERATIVE DIAGNOSIS Stress urinary incontinence. PROCEDURE PERFORMED Cystoscopy with bladder neck injection. DESCRIPTION OF PROCEDURE The patient was brought to the operating room and after the adequate induction of general anesthesia, she was placed in the relaxed dorsal lithotomy position. The genitalia were scrubbed, prepped and draped in the sterile fashion and the bladder examined cystoscopically. No mucosal abnormalities were noted within the bladder. The bladder was emptied and I used the injection bridge to advance the Macroplastique needle first to the 2 o'clock position, where half a syringe was injected and then to the 10 o'clock position where half a syringe was injected submucosally. The syringe was then refilled and an entire syringe injected submucosally at the 6 o'clock position. The urethral mucosa appeared to coapt nicely. Her bladder was emptied with an 8-Luxembourgish red rubber catheter. She was aroused from anesthesia and then transferred to the PACU in stable condition. KRISSY
== END 2018-07-24 09:15 | disposition home or self-care (01) ==
LOC: OR 02:10
PROVIDERS: ATTEND Urology
DX: N39.3 Stress incontinence (female) (male) (principal); I10 Essential (primary) hypertension; F17.200 Nicotine dependence, unspecified, uncomplicated
CPT/HCPCS: 51715; 94640; A9270; J1100; J1580; J2001; J2250; J2405; J2704; J3010; J7050; J7620

== ENCOUNTER → 2018-11-07 | Outpatient (CLI) | payer MEDICARE, BC ==
[~2018-11-07] MED LIST changes: -NORMOSOL R SOLN(*) 1000 ML BAG 1,000 ML IV PRN; +OXYB10TA16 PO; +OXYB15TA14 PO; +TROS60CA PO
--- NOTE | 2018-11-07 15:20 | RADIOLOGY IMAGING REPORT ---
FACILITY: [facility] - [place] PATIENT NAME: Kaylie Chan : 1940 MR: [id number] V: [id number] EXAM DATE: ORDERING PHYSICIAN: DAMION DODGE TECHNOLOGIST: Location: [facility] Patient: Kaylie Chan : 1940 Visit/Account:[id number] Date of Sevice: 11/07/2018 CT ABDOMEN PELVIS W/O CON HISTORY: Incisional hernia of anterior abdominal wall TECHNIQUE: Axial images acquired through the abdomen/pelvis. Coronal and sagittal reformatting also performed. No IV contrast administered.Dose Lowering Technique One of the following dose optimization techniques was utilized in the performance of this exam: Autom ated exposure control; adjustment of the mA and/or kV according to the patient's size; or use of an i terative reconstruction technique. Specific details can be referenced in the facility's radiology C T exam operational policy. COMPARISON: CTA chest October 18, 2017 FINDINGS: Visualized lung bases: Negative. Hepatobiliary: Negative. Spleen: Calcified granulomas Adrenals: Hypoattenuating right adrenal masses appear relatively unchanged. Most inferior right adr enal mass in the inferior left renal mass were not included on the prior CT the chest. The low CT Ho unsfield units suggest these are adenomas Pancreas: Negative. Kidneys ureters and bladder: Negative. Genitalia: There postsurgical changes from hysterectomy. There are at least three hyperattenuating masses within the vagina largest measuring approximately 1.7 cm GI: There is a surgical anastomosis in the sigmoid colon. There are scattered diverticula throughou t the colon although no CT evidence of acute diverticulitis. There is a left lateral ventral hernia containing nonobstructed small bowel. There is severe atrophy of the abdominis rectus muscles. There are postsurgical changes along the anterior abdominal wall Vessels/spaces/nodes: There are moderate atherosclerotic calcifications throughout the abdomen and p saleem. There is a left common iliac artery stent. Bones/soft tissues: There are degenerative facet joint changes lumbar spine Additional findings: None pertinent. IMPRESSION: There is a left lateral ventral hernia containing nonobstructed small bowel Severe atrophy of the abdominal rectus muscles Postsurgical changes along the intra-abdominal wall Surgical anastomosis in the sigmoid colon. Scattered diverticula throughout the colon although no CT evidence of acute diverticulitis Hypoattenuating adrenal masses likely represent adenomas Report Dictated By: Maria Teresa Valdez MD at 11/07/2018 2:59 PM Report E-Signed By: Maria Teresa Valdez MD at 11/07/2018 3:14 PM SHEELAN:LENARD
== END ==
LOC: CT 11-02 00:43
PROVIDERS: ATTEND Surgery
DX: K43.2 Incisional hernia without obstruction or gangrene (principal)
CPT/HCPCS: 74176

== ENCOUNTER → 2018-12-08 | Outpatient (CLI) | payer MEDICARE, BC ==
[2018-12-08 14:27] LABS: PLATELET COUNT, AUTOMATED 255 K/uL (150-450)
--- NOTE | 2018-12-08 15:46 | RADIOLOGY IMAGING REPORT ---
FACILITY: [facility] PATIENT NAME: Kaylie Chan : 1940 MR: [id number] V: [id number] EXAM DATE: ORDERING PHYSICIAN: DAMION DODGE TECHNOLOGIST: Location: [facility] - [place] Patient: Kaylie Chan : 1940 Visit/Account:[id number] Date of Sevice: 12/08/2018 Chest 2 views: HISTORY: COPD, history of smoking. Atrial fibrillation. Preoperative clearance. COMPARISON: 03/29/2018 FINDINGS: Frontal and lateral chest: Heart is mildly enlarged. Mediastinal contours are normal. The re is no infiltrate or pleural effusion. No pneumothorax. Pulmonary vasculature is normal. Sequelae of granulomatous disease again noted calcified right hilar nodes and right lung granuloma. Minimal degenerative changes present in the thoracic spine. IMPRESSION: Stable, mild cardiomegaly. There is no evidence of acute cardiopulmonary abnormality. Report Dictated By: Tisha Villagomez MD at 12/08/2018 3:37 PM Report E-Signed By: Tisha Villagomez MD at 12/08/2018 3:38 PM WSN:[id number]
== END ==
LOC: LAB 13:51
PROVIDERS: ATTEND Surgery
DX: I51.7 Cardiomegaly (principal)
CPT/HCPCS: 36415; 71046; 85025

== ENCOUNTER 2018-12-13 00:53 | Day surgery (SDC) | payer MEDICARE, BC ==
[2018-12-13] VITALS (8 sets, daily range): BP systolic 126–178; BP diastolic 78–128
[~2018-12-13] VITALS: Ht 170.2 cm; Wt 81.2 kg
[2018-12-13] MEDS ORDERED: PROPOFOL EMUL(*) 10MG/ML 20 ML 20 ML ONE ×2 (07:11→11:11)
[2018-12-13] MEDS ORDERED: LIDOCAINE/SOD BICARB 8.4% SYR ID ONE (09:25)
[2018-12-13] MEDS ORDERED: NORMOSOL R SOLN(*) 1000 ML BAG 1,000 ML IV PRN (09:25)
[2018-12-13] MEDS ORDERED: LABETALOL HCL 100 MG/20ML VIAL IVP PRN (09:55)
[2018-12-13] MEDS ORDERED: LIDOCAINE/SOD BICARB 8.4% SYR ONE (10:07)
--- NOTE | 2018-12-13 11:25 | Short(Outpt) Discharge Summary ---
Discharge Summary Reason for Hosp/Final Diag: (1) History of colon polyps Status: Chronic Hospital Course & Plan: Colonoscopy with polypectomy x4 completed without problems. 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: Chronic Departure Discharge to: Home, Self Care Discharge Instructions Home Meds Active Scripts Metoprolol Succinate (METOPROLOL SUCCINATE) 50 Mg Tab.er.24h, 1 TAB PO QDAY, #90 TAB 3 Refills Prov:ANISH HOYOS MD 12/08/18 Gabapentin (GABAPENTIN) 300 Mg Capsule, 1 CAP PO TID, #270 CAPSULE 3 Refills Prov:ANISH HOYOS MD 11/10/18 Apixaban (ELIQUIS) 5 Mg Tablet, 1 TAB PO BID, #180 TAB 3 Refills Prov:ANISH HOYOS MD 08/31/18 Tramadol Hcl (TRAMADOL HCL) 50 Mg Tablet, 2 TAB PO TID PRN for pain, #180 TAB 5 Refills Prov:ANISH HOYOS MD 08/24/18 Fluticasone/Salmeterol (ADVAIR 250-50 DISKUS) 1 Each Disk.w.dev, 1 EACH IH BID, #3 DISK 3 Refills Prov:ANISH HOYOS MD 07/31/18 Cyanocobalamin (Vitamin B-12) (VITAMIN B-12) 1,000 Mcg Tablet, 1000 MCG PO DAILY, #90 TAB 3 Refills Prov:ANISH HOYOS MD 06/30/18 Montelukast Sodium (MONTELUKAST SODIUM) 10 Mg Tablet, 1 TAB PO QDAY, #90 TAB 3 Refills Prov:ANISH HOYOS MD 01/06/18 Diltiazem Hcl (DILTIAZEM 24HR CD) 240 Mg Cap.er.24h, 240 MG PO DAILY, #90 CAP.SR.24H 3 Refills Prov:ANISH HOYOS MD 01/03/18 Atorvastatin Calcium (ATORVASTATIN CALCIUM) 40 Mg Tablet, 1 TAB PO QDAY, #90 TAB 3 Refills Prov:ANISH HOYOS MD 12/20/17 Losartan/Hydrochlorothiazide (LOSARTAN-HCTZ 100-25 MG TAB) 1 Each Tablet, 1 EACH PO QDAY, #90 TAB 3 Refills Prov:ANISH HOYOS MD 10/27/17 Ipratropium/Albuterol Sulfate (IPRAT-ALBUT 0.5-3(2.5) MG/3 ML) 3 Ml Ampul.neb, 3 ML IH Q4-6H PRN for WHEEZING, #40 VIAL 0 Refills Prov:SNEHAL YEH DNP, DOOR TO DOOR LEAD GENERATION-BC 07/25/17 Albuterol Sulfate 90 Mcg/Act (PROAIR HFA 90 MCG/ACT) 8.5 Gm Hfa.aer.ad, 2 PUFF IH Q4-6H, #1 INHALER Prov:ANISH HOYOS MD 07/18/17 Reported Medications Aspirin (ASPIR 81) 81 Mg Tablet.dr, 81 MG PO QDAY, TAB 03/15/14 Discontinued Scripts Trospium Chloride (TROSPIUM CHLORIDE) 60 Mg Cap.er.24h, 60 MG PO DAILY for 30 Days, #30 CAP Prov:SHEMAR MIX MD 08/08/18 Metaxalone (SKELAXIN) 800 Mg Tablet, 800 MG PO TID PRN for prn, #15 TAB 0 R efills Prov:PRECIOUS LUO DOOR TO DOOR LEAD GENERATION-BC 10/18/17 Diet: Regular Activity: As Tolerated Special Instructions: Your colonoscopy was completed without problems and your prep was excellent (Good Job!!). I removed 4 polyps from your colon and they were sent to pathology. Your rectum and anus looked normal. My office will call you in the next day or two to schedule a follow up appointment to see me back in my office to discuss these results with you and discuss repairing the hernia. You may restart Eliquis on 12/16/18. DAMION DODGE MD Dec 13, 2018 11:25
--- NOTE | 2018-12-13 11:44 | NUR ---
1130 VSS, DOWN TO 1L NC, AWAKE, REQUESTING ICE WATER 1140 PT TOLERATING ICE WATER, UP TO SF, REQUESTING ICE FOR BACK, NAZARIO AT BEDSIDE
--- NOTE | 2018-12-13 12:29 | NUR ---
1200 ORTHOSTATICS DONE, STABLE, DENIES DIZZINESS, REASSESSED, UNREMARKABLE, D/C FROM IV TUBING, TO RESTROOM, ALLOWED TO DRESS 1210 D/C INSTRUCTIONS COVERED, ALL QUESTIONS ANSWERED, PT OUT TO CARE OUTSIDE OF [address] ENTRANCE IN , SAFETY MAINTAINED, SELF TRANSFERRED TO CAR, ALL BELONGINGS WITH PT
== END 2018-12-13 12:20 | disposition home or self-care (01) ==
LOC: OR 00:53
PROVIDERS: ATTEND Surgery
DX: Z12.11 Encounter for screening for malignant neoplasm of colon (principal); D12.4 Benign neoplasm of descending colon; D12.5 Benign neoplasm of sigmoid colon
CPT/HCPCS: 00811; 45385; 88305; J2704